=== PATIENT | male | born 1960 | race Caucasian/White ===

== ENCOUNTER 2017-12-05 19:37 | Emergency (ER) | payer SELFPAY ==
[~2017-12-05] VITALS: Ht 190.5 cm; Wt 87.5 kg
[2017-12-05 20:59] LABS: BASOPHILS 0.2 % (0-2); EOSINOPHILS 0.9 % (0-7); HEMATOCRIT 40.6 % (42.0-54.0); HEMOGLOBIN 13.5 g/dL (13.5-17.5); IMMATURE GRANULOCYTES 0.2 % (0-5); LYMPHOCYTES 39.5 % (15-50); MCHC 33.3 g/dL (31.0-37.0); MCV 96.2 fL (80.0-100.0); MEAN PLATELET VOLUME 9.3 fL (7.4-10.4); MONOCYTES 8.1 % (2-11); NEUTROPHILS 51.1 % (40-80); PLATELET COUNT 255 10x3/uL (130-400); RBC 4.22 10x6/uL (4.20-6.10); RDW 12.2 % (11.5-14.5); WBC 6.6 10x3/uL (4.8-10.8)
[2017-12-05 21:24] LABS: ALBUMIN 4.1 g/dL (3.4-5.0); ANION GAP 15.4 mmol/L (8-16); APTT 24.1 SECONDS (22.8-39.4); BILIRUBIN - TOTAL 0.4 mg/dL (0.2-1.3); CALCIUM 8.8 mg/dL (8.5-10.1); CARBON DIOXIDE 24.2 mmol/L (21.0-32.0); CREATININE - SERUM 1.1 mg/dL (0.6-1.3); INR 0.89 (0.85-1.17); POTASSIUM - SERUM 4.6 mmol/L (3.5-5.1); PROTEIN - SERUM 7.7 g/dL (6.4-8.2); PROTIME 11.7 SECONDS (11.6-15.0)
[2017-12-05] MEDS ORDERED: LISINOPRIL10 MG PO (23:15)
[2017-12-05] MEDS ORDERED: ULTRAM50 MG PO (23:16)
[2017-12-06 11:33] VITALS: Ht 190.5 cm; Wt 87.5 kg
== END 2017-12-05 21:53 | disposition other institution (70) ==
LOC: D.ER 19:37
PROVIDERS: Physician Assistant Medical
DX: S67.196A Crushing injury of right little finger, initial encounter (principal); Y93.89 Activity, other specified; Y92.019 Unspecified place in single-family (private) house as the place of occurrence of the external cause; F98.8 Other specified behavioral and emotional disorders with onset usually occurring in childhood and adolescence; I10 Essential (primary) hypertension

== ENCOUNTER 2017-12-05 19:37 | Inpatient (IN) | payer SELFPAY ==
[~2017-12-05] VITALS: Ht 190.5 cm; Wt 87.3 kg
--- NOTE | ~2017-12-05 | OP ---
PATIENT NAME: JACE SHORT MEDICAL RECORD: [id number] :[birth year] LOCATION:[facility] ADMISSION DATE:12/05/17 SURGEON: KELI BROWN MD DATE OF OPERATION: 12/05/2017 PREOPERATIVE DIAGNOSIS: Open crush injury to the right fifth finger with nail bed avulsion. POSTOPERATIVE DIAGNOSIS: Open crush injury to the right fifth finger with nail bed avulsion. PROCEDURES: 1. Open reduction and internal fixation of the right fifth distal phalanx. 2. Complex skin closure. 3. Nail bed repair with fingernail reapproximation. 4. I and D skin and subcutaneous tissue. SURGEON: Keli Brown MD ANESTHESIA: General. INTRAOPERATIVE COMPLICATIONS: None. SUMMARY OF PATHOLOGIC FINDINGS: The patient had a very viable finger, mostly the injury was avulsion with a tuft fracture that was easily pinned; however, the nail was avulsed and required some degree of effort to reconstruct. OPERATIVE SUMMARY IN DETAIL: After obtaining the appropriate preoperative orthopedic surgery consent as well as anesthetic consultation, evaluation, and clearance, the patient was brought to the operating room and placed on the operating table in supine position. After general laryngeal mask was administered, tourniquet was placed at the proximal aspect of the right lower extremity. The right lower extremity was then prepped and draped in routine sterile fashion. Arm was elevated and exsanguinated, tourniquet inflated to 250 mmHg. The I&D was carried out first. Debridement of mostly blood and foreign material, nonviable-appearing tissue, this was carried out with both curettage and rongeur as well as scalpel. When all nonviable and blood material were seen, skin was then reconstructed with 4-0 Prolene about this avulsion from the entire area. Next, the area on the lateral side of the nail bed was also sutured back together and then the nail was then sutured back into place in the eponychial fold once again with transnail 4-0 Prolene. Having completed this, under direct fluoroscopic visualization on AP and lateral planes, a single 0.045 K wire was placed across the fracture to the base of the distal phalanx. Final radiographs were taken and submitted for radiologist review. Sterile dressings were applied. Prior to applying sterile dressing, a digital block was put in place. Sterile dressings were applied. The patient was awakened and taken to recovery in stable condition. All final needle and sponge counts were correct. TRANSINT:[id number] Voice Confirmation ID: [id number] DOCUMENT ID: [id number] OPERATIVE REPORT [id number] JACE SHORT MD, KELI PERSON at [id number] CC: [id number] DICTATION DATE: 12/06/17 1312 GENERAL MAGISTRATE: 12/06/17 2147 ADM IN [place] [id number] [place] [address]
[2017-12-05] MEDS ORDERED: LISINOPRIL10 MG PO (23:15)
[2017-12-05] MEDS ORDERED: ULTRAM50 MG PO (23:16)
[2017-12-06] VITALS: BP 135/105
[2017-12-06 04:00] VITALS: BP 135/74
[2017-12-06 04:05] VITALS: BMI 24.8
[2017-12-06 08:26] VITALS: BP 119/85
[2017-12-06 11:33] VITALS: Ht 190.5 cm; Wt 87.3 kg
[2017-12-06 11:37] VITALS: BP 156/89
[2017-12-06 12:01] LABS: BASOPHILS 0.2 % (0-2); EOSINOPHILS 0.9 % (0-7); HEMATOCRIT 39.2 % (42.0-54.0); HEMOGLOBIN 12.9 g/dL (13.5-17.5); LYMPHOCYTES 27.7 % (15-50); MCH 31.9 pg (26.0-34.0); MCHC 32.9 g/dL (31.0-37.0); MCV 96.8 fL (80.0-100.0); MONOCYTES 8.1 % (2-11); NEUTROPHILS 63.1 % (40-80); PLATELET COUNT 203 10x3/uL (130-400); RBC 4.05 10x6/uL (4.20-6.10); RDW 12.3 % (11.5-14.5); WBC 5.5 10x3/uL (4.8-10.8)
[2017-12-06 12:13] LABS: CALC OSMOLALITY 279 mosm/kg (275-300); CALCIUM 9.6 mg/dL (8.5-10.1); CARBON DIOXIDE 28.5 mmol/L (21.0-32.0); CHLORIDE - SERUM 105 mmol/L (98-107); CREATININE - SERUM 0.9 mg/dL (0.6-1.3); GLUCOSE 97 mg/dL (74-106); POTASSIUM - SERUM 4.1 mmol/L (3.5-5.1); SODIUM 139 mmol/L (136-145); UREA NITROGEN 19 mg/dL (7-18); eGFR NON AFRICAN AMERICAN > 90 mL/min (90-120)
[2017-12-06 16:53] VITALS: BP 105/64
[2017-12-06 22:30] VITALS: BP 116/79
[2017-12-07 04:30] VITALS: BP 122/82
[2017-12-07] MEDS ORDERED: PERCOCET 10/3251 TA1 PO (06:50)
[2017-12-07] MEDS ORDERED: BACTRIM DS TABL1 TAB PO (06:51)
[2017-12-07 08:13] VITALS: BP 134/93
== END 2017-12-07 10:52 | disposition home or self-care (01) | DRG 906 ==
LOC: OBSVTIME → D.ER 19:37 → UNDOADMOB 21:53 → D.M2 21:53 → D.EDHOLD 21:53 → D.M2 21:53 → D.EDHOLD 22:01 → OBSVTIME 12-07 00:05 → D.M2 12-07 06:51 → EDBD 12-07 10:52 → D.M2 12-07 10:52 → EDSTATUS 12-08 14:29
PROVIDERS: Anesthesiology
PROC: 0PST04Z Reposition Right Finger Phalanx with Internal Fixation Device, Open Approach (ICD-10-PCS; principal; 2017-12-05)
PROC: 0HQQXZZ Repair Finger Nail, External Approach (ICD-10-PCS; 2017-12-05)
PROC: 0J9J0ZZ Drainage of Right Hand Subcutaneous Tissue and Fascia, Open Approach (ICD-10-PCS; 2017-12-05)
DX: S67.196A Crushing injury of right little finger, initial encounter (principal); X58.XXXA Exposure to other specified factors, initial encounter; S61.306A Unspecified open wound of right little finger with damage to nail, initial encounter; I10 Essential (primary) hypertension